=== PATIENT | female | born 1970 | race Caucasian/White ===

== ENCOUNTER → 2025-01-15 07:30 | Outpatient (REF) | payer SELFPAY | LOC: CLAB 07:30 | PROVIDERS: ATTENDING PHYSICIAN Specialist | DX: Z41.1 Encounter for cosmetic surgery (principal); N62 Hypertrophy of breast | CPT/HCPCS: 88305 ==

== ENCOUNTER → 2025-02-14 07:18 | Outpatient (REF) | payer OTHER, SELFPAY ==
[2025-02-14] MEDS: PERCOCET 5/325 1 TABLET PO (08:15)
== END ==
LOC: RADI 07:18
PROVIDERS: ATTENDING PHYSICIAN Specialist; FAMILY PHYSICIAN Internal Medicine
DX: Z46.82 Encounter for fitting and adjustment of non-vascular catheter (principal); L76.34 Postprocedural seroma of skin and subcutaneous tissue following other procedure; Y83.8 Other surgical procedures as the cause of abnormal reaction of the patient, or of later complication, without mention of misadventure at the time of the procedure
CPT/HCPCS: 10030; 87015; 87070; 87077; 87205; C1729; C1769

== ENCOUNTER → 2025-03-01 07:49 | Outpatient (REF) | payer OTHER, SELFPAY ==
[2025-03-01 08:24] VITALS: BP 163/90; BP_SYST 80
== END ==
LOC: RADI 07:49
PROVIDERS: ATTENDING PHYSICIAN Specialist; FAMILY PHYSICIAN Internal Medicine
DX: N61.1 Abscess of the breast and nipple (principal)
CPT/HCPCS: 76642

== ENCOUNTER → 2025-04-04 01:00 | Outpatient (REF) | payer OTHER, SELFPAY | LOC: CLAB 01:00 | PROVIDERS: ATTENDING PHYSICIAN Specialist | DX: T81.30XA Disruption of wound, unspecified, initial encounter (principal) | CPT/HCPCS: 88305 ==